=== PATIENT | female | born 1980 ===

== ENCOUNTER 2024-10-16 08:03 | Outpatient (AMB) | payer OTHER, SELFPAY ==
[2024-10-16 08:07] VITALS: BP 118/68; PULSE 89; O2SAT 97; BMI 55.5
--- NOTE | 2024-10-16 08:07 | A.OFFVIS_ITS ---
Vital Signs 10/16/24 08:07 Height 5 ft Weight 283 lb 15.286 oz BMI 55.5 BP 118/68 Blood Pressure Location Lt brachial Position Sitting Pulse 89 Pulse Source Pulse Oximeter Pulse Oximetry (%) 97 Oxygen Delivery Method Room Air Intake Visit Reasons: Carpal tunnel Intake Note: Patient presents for follow up on carpal tunnel syndrome. Allergies No Known Allergies Allergy (Verified 10/16/24 08:09) HPI HPI Carpal tunnel: Details: He has numbness in her hands every day. Right hand numbness is worse than left hand numbness. Bilateral wrist braces are worn out. She has had benefit with cortisone injections in the past. She received cortisone injection to treat right carpal tunnel syndrome 12/2023 and 1 last year to treat left carpal tunnel syndrome. [facility] Medical History (Updated 10/16/24 @ 22:46 by Donn Katz MD) Normal esophagogastroduodenoscopy (EGD) Depression Elevated TSH Morbid obesity with BMI of 50.0-59.9, adult Urge incontinence Gallbladder sludge GERD (gastroesophageal reflux disease) Surgical History (Updated 08/31/22 @ 07:28 by Darius Carcamo LPN) Hx laparoscopic cholecystectomy history Family History (Updated 08/31/22 @ 07:33 by Darius Carcamo LPN) Mother Thyroid disease Hypertension H/O scleroderma Father Myocardial infarct Diabetes Maternal Grandmother Diabetes Myocardial infarct Paternal Grandmother AD (Alzheimer's disease) Review of Systems Const All systems reviewed & are unremarkable except as noted in HPI and below Physical Exam Vital Signs: Last Vital Signs Pulse 89 10/16/24 08:07 BP 118/68 10/16/24 08:07 Pulse Ox 97 10/16/24 08:07 Oxygen Delivery Method Room Air 10/16/24 08:07 BMI result Body Mass Index 55.5 Const Other: General: Comfortable Skin: No lesions seen MSK: Nontender bilateral wrists and hands. No synovitis present. No deformity of wrists. Good range of motion of wrists. Office Procedures AMB Joint Injection/Aspiration Joint Injection/Aspiration Primary Site: right carpal tunnel Prep: site was prepped using aseptic technique Injected: 20 mg of, 40 mg of, Kenalog, with 0.5 mL of and 1% plain lidocaine Procedure: The patient tolerated the procedure well Coding Additional procedure code (CPT) needed (32525) AMB Joint Injection/Aspiration Joint Injection/Aspiration Primary Site: left carpal tunnel Prep: site was prepped using aseptic technique Injected: 20 mg of, Kenalog, with 0.5 mL of and 1% plain lidocaine Procedure: The patient tolerated the procedure well Coding Additional procedure code (CPT) needed (48020) Office Meds lidocaine (PF) 10 mg/mL (1 %) injection solution Performing Provider: Donn Katz MD Performing Location: [facility] Administered by: Donn Katz MD on 10/16/24 22:40 Dose Route Admin Location Dispensed Lot Number Expiration Date [facility] [employer] 5 mg Infiltration 2 mL [id number] [employer] Kenalog 40 mg/mL suspension for injection Performing Provider: Donn Katz MD Performing Location: [facility] Administered by: Donn Katz MD on 10/16/24 22:40 Dose Route Admin Location Dispensed Lot Number Expiration Date [facility] [employer] 20 mg Tendon Sheath Inj. 1 mL [id number] [employer] lidocaine (PF) 10 mg/mL (1 %) injection solution Performing Provider: Donn Katz MD Performing Location: [facility] Administered by: Donn Katz MD on 10/16/24 22:40 Dose Route Admin Location Dispensed Lot Number Expiration Date [facility] [employer]ic 5 mg Infiltration 2 mL [id number] [employer] Kenalog 40 mg/mL suspension for injection Performing Provider: Donn Katz MD Performing Location: [facility] Administered by: Donn Katz MD on 10/16/24 22:40 Dose Route Admin Location Dispensed Lot Number Expiration Date [facility] [employer]ic 20 mg Tendon Sheath Inj. 1 mL [id number] [employer] Assessment & Plan Assessment & Plan (1) Carpal tunnel syndrome, bilateral: Comment: Bilateral. Uncontrolled numbness. Code(s): G56.03 - Carpal tunnel syndrome, bilateral upper limbs Category: Medical Plan: Bilateral cortisone injections for treatment of carpal tunnel syndrome given today Return to clinic in 6 months or sooner if needed Requesting medical records from [facility] Prescription bilateral cock-up wrist braces given to patient Orders: Orders AMB Joint Injection/Aspiration Today G56.03 - Carpal tunnel syndrome, bilateral upper limbs AMB Joint Injection/Aspiration Today G56.03 - Carpal tunnel syndrome, bilateral upper limbs Medications: New arm brace (Wrist Brace) As directed. Wear at night. Bilateral cockup wrist braces. Dx carpal tunnel syndrome 2 ea 0RF Coding Level of Care Code Est Pt Level 3 (03141) Complex EM visit Add On G2211 Diagnoses Carpal tunnel syndrome, bilateral G56.03 Comment Bilateral cortisone injection carpal tunnel CPT 24747
== END 2024-10-16 08:50 | disposition home or self-care (01) ==
PROVIDERS: PCP Internal Medicine Endocrinology, Diabetes & Metabolism; Visit Provider Internal Medicine Rheumatology
DX: G56.03 Carpal tunnel syndrome, bilateral upper limbs (principal)
CPT/HCPCS: 99213; G2211

== ENCOUNTER → 2024-10-16 08:03 | Outpatient (BNVA) | payer OTHER, SELFPAY | PROVIDERS: PCP Internal Medicine Endocrinology, Diabetes & Metabolism; Visit Provider Internal Medicine Rheumatology | DX: G56.03 Carpal tunnel syndrome, bilateral upper limbs (principal) | CPT/HCPCS: 20526; 99212; J2003; J3300 ==

== ENCOUNTER 2025-05-16 07:58 | Outpatient (REF) | payer OTHER, SELFPAY ==
[2025-05-16 13:45] LABS: Alanine Aminotransferase 24 U/L (0-31); Aspartate Amino Transferase 23 U/L (5-31); Estimated Glomerular Filt Rate > 60
== END 2025-05-16 07:59 | disposition home or self-care (01) ==
LOC: HO.HKASLDS 07:58
PROVIDERS: PCP Internal Medicine Endocrinology, Diabetes & Metabolism; Visit Provider Internal Medicine Rheumatology
DX: G56.03 Carpal tunnel syndrome, bilateral upper limbs (principal); M25.561 Pain in right knee; M25.562 Pain in left knee; R25.2 Cramp and spasm; Z79.1 Long term (current) use of non-steroidal anti-inflammatories (NSAID)
CPT/HCPCS: 36415; 82565; 84450; 84460; 99212

== ENCOUNTER 2025-05-16 07:58 | Outpatient (AMB) | payer OTHER, SELFPAY ==
--- NOTE | 2025-05-16 07:59 | A.OFFVIS_ITS ---
Vital Signs 05/16/25 08:06 Height 5 ft Weight 298 lb 2 oz BMI 58.2 BP 110/80 Blood Pressure Location Rt brachial Position Sitting Pulse 76 Pulse Source Pulse Oximeter Pulse Oximetry (%) 98 Oxygen Delivery Method Room Air Intake Visit Reasons: 6 months Intake Note: Patient presents for follow up on carpal tunnel syndrome. Allergies No Known Allergies Allergy (Verified 05/16/25 08:07) HPI HPI 6 months: Details: Fell a month ago on her knees. She has had constant knee pain. Ibuprofen 600mg alternating with tylenol [id number]. Ibuprofen helps more for knee pain. Hands are cramping. [facility] Medical History (Updated 05/16/25 @ 08:36 by Donn Katz MD) Normal esophagogastroduodenoscopy (EGD) Depression Elevated TSH Morbid obesity with BMI of 50.0-59.9, adult Urge incontinence Gallbladder sludge GERD (gastroesophageal reflux disease) Surgical History (Updated 08/31/22 @ 07:28 by Darius Carcamo LPN) Hx laparoscopic cholecystectomy history Family History (Updated 08/31/22 @ 07:33 by Darius Carcamo LPN) Mother Thyroid disease Hypertension H/O scleroderma Father Myocardial infarct Diabetes Maternal Grandmother Diabetes Myocardial infarct Paternal Grandmother AD (Alzheimer's disease) Physical Exam Vital Signs: Last Vital Signs Pulse 76 05/16/25 08:06 BP 110/80 05/16/25 08:06 Pulse Ox 98 05/16/25 08:06 Oxygen Delivery Method Room Air 05/16/25 08:06 BMI result Body Mass Index 58.2 Const Other: General: Comfortable Skin: No lesions seen MSK: Nontender bilateral wrists and hands. No synovitis present. No deformity of wrists. Good range of motion of wrists. Tender to palpate Left medial joint line of knee. Bilateral knee flexion 90 degrees. No knee effusion. Assessment & Plan Assessment & Plan (1) Carpal tunnel syndrome, bilateral: Comment: Bilateral. Controlled with last set of cortisone injections. Rheumatology history: Diagnosed with bilateral carpal tunnel syndrome confirmed on nerve conduction study at the [facility]. She received right cortisone injection August 2023 and left cortisone injection November 2023. She had bilateral cortisone injections 10/16/2024. Code(s): G56.03 - Carpal tunnel syndrome, bilateral upper limbs Category: Medical Plan: Return to clinic in 4 months or sooner if needed (2) Knee pain, bilateral: Comment: After fall. Left worse than right. She feels that her left knee is moving to records when she walks sometimes. She did not have any exam features of knee instability. Discussed conservative management. Code(s): M25.561 - Pain in right knee; M25.562 - Pain in left knee Category: Medical Plan: Start using ibuprofen 600 mg daily. She can use additional dose in the evening after dinner if needed for pain control for the next 2 weeks. Ice knee. If ice is ineffective use heat. Bilateral knee x-rays ordered PT ordered for knee strengthening Return to clinic in August or sooner if needed (3) Hand cramps: Code(s): R25.2 - Cramp and spasm Category: Medical Plan: Discussed importance of hydration If she continues to have hand cramps at follow-up visit, I will order electrolytes for further evaluation Return to clinic in 4 months Orders: Orders XR Knee Archie 3V Today M25.561 - Pain in right knee, M25.562 - Pain in left knee PT Evaluation and Treatment Today M25.561 - Pain in right knee, M25.562 - Pain in left knee Alanine Aminotransferase Today Z79.1 - [facility] (current) use of non-steroidal anti-inflammatories (NSAID) Aspartate Amino Transferase Today Z79.1 - medical terminologist (current) use of non- steroidal anti-inflammatories (NSAID) Creatinine Today Z79.1 - medical terminologist (current) use of non-steroidal anti- inflammatories (NSAID) Medications: New ibuprofen Take with food 600 mg PO Q8H PRN 90 tabs 1RF pain Coding Level of Care Code Est Pt Level 4 (64198) Complex EM visit Add On G2211 Diagnoses Carpal tunnel syndrome, bilateral G56.03 Knee pain, bilateral M25.561; M25.562 Hand cramps R25.2
--- OUTSIDE RECORDS SUMMARY | 2025-05-16 08:00 | XMS_ITS ---
Author Name [facility] Organization Unknown Care Team Organization Name Specialty Phone Email Start Date End Da te [facility] GARLAND PEÑA [facility] [email or web address]/16/2023 4 [facility] Isael Astorga Primary Care 01/18/202305/17 4 [facility] SHANIKA Lew Primary Care 08/24/202205/17 4
--- OUTSIDE RECORDS SUMMARY | 2025-05-16 08:00 | XMS_ITS | Encounter Summary ---
Author Organization [facility] Address [address] [place] [address] Care Team Providers Care Sandal Parts Assembler Name Role Phone Wily Jonas MD Primary Care Pr ovider Reason for Visit * Reason Onset Date Comments Prior Adverse 04/25/2025 Prior auth 04/25/2025 Encounter Details Date Type Department Care Team (Late st Contact Info) Description 04/25/2025 Telephone Endocrinology - [place] [address] [facility] [place] [phone] Savana Hammer MD [address] [place] [id number] Prior Adverse ; Prior auth Social History Tobacco Use Types Packs/Day Years Used Date Smoking Tobacco: Never Passive Smoke Exposure: Never Smokeless Tobacco: Never Alcohol Use Standard Drinks/Week Comments Yes 0 (1 standard drink = 0.6 oz pur e alcohol) socially Housing Instability Answer Date Recorde d Are you worried that in the next 2 months you may not have stable housing? No 12/12/2024 Food Access & Nutrition Answer Date Rec orded Do you have access to a vari ety of food including fruits and vegetables? Yes 12/12/2024 Access to Healthcare Answer Date Record ed Within the last 3 months, [place] many times did you visit the emergency department for your medical care? 0 12/12/2024 Health Literacy Answer Date Recorded How often do you need to hav e someone help you when you read instructions, pamphlets, or other written material from your doctor or pharmacy? Never 12/12/2024 Caregiver: How often do you need to have someone help you when you read instructions, pamphlets, or other written material from your doctor or pharmacy? Not on file 12/12/2024 Financial Risk Answer Date Recorded How hard is it for you to pa y for the very basics like food, housing, medical care, and air conditioning / heating? Not very hard 12/12/2024 Transportation Answer Date Recorded Has the lack of transportati on kept you from meetings, work, or from getting things needed for daily living? No Has the lack of transportati on kept you from medical appointments or from getting medications? No 12/12/2024 Social Isolation Answer Date Recorded How often do you feel lonely or isolated from th ose around you? Never 12/12/2024 Food Risk Answer Date Recorded Within the past 12 months we worried whether our food would run out before we got money to buy more. Never true 12/12/2024 Within the past 12 months th e food we bought just didn't last and we didn't have money to get more. Never true 12/12/2024 Dependent Care Answer Date Recorded Do you need help finding or paying for care for your loved ones. For example, salesperson children's shoes or elderly care for an older adult? No 12/12/2024 Education Answer Date Recorded Do you think completing more education or training, like finishing a GED, going to college, or learning a trade, would be helpful for you? No 12/12/2024 Employment and Income Answer Date Recor ded During the last four weeks, have you been actively looking for work? No 12/12/2024 Living Situation Answer Date Recorded What is your living situation? 0 12/12/2024 Comments No Sex and Gender Information Value Date Recorded Sex Assigned at Female 09/26/2024 11:37 AM EST Legal Sex Female 9:51 PM EST Gender Identity Female 09/26/2024 11:37 AM EST Sexual Orientation Straight 09/26/2024 11 :37 AM EST documented as of this encounter Progress Notes * Delia Lucio - 05/02/2025 10:36 AM EDT Pt would like update about prior auth * Delia Lucio - 04/30/2025 4:41 PM EDT Pt following up about prior auth. * Ines Rankin MA - 04/25/2025 3:35 PM EDT I call [facility] to venkat BARAHONA for zepbound per insurance someone call yesterday and was denied ,no documentation on file. * Darius Victor - 04/25/2025 1:50 PM EDT Prior Authorization for Medication-do not complete and send this encounter unless you have the fax from the pharmacy. Is this a Cover My Meds request: Yes -- Dia Code [id number] Name of Medication Zepbound Dose of Medication 2.5mg What is the RX # from the faxed refill? N/a How does patient take this med? injection What Pharmacy did the fax come from: [facility] Pharmacy fax #: [phone] documented in this encounter Plan of Treatment Upcoming Encounters Date Type Department Care Team (Late st Contact Info) Description 05/21/2025 1:15 PM EDT Office Visit Adult Medicine [address] [phone] Irasema Blake PA [address] [place] [address] 06/11/2025 4:00 PM EDT Office Visit [address] [phone] Savana Hammer MD [address] [place] [address] documented as of this encounter Visit Diagnoses Not on filedocumented in this encounter Additional Health Concerns Assessment Noted Time PHQ-9 Depression Total Score: 0 11/14/19 25 8:05 AM EST documented as of this encounter Care Teams Sandal Parts Assembler Relationship Specialty Start Date End Date Wily Jonas MD [address] [place] [id number] PCP - General 10/06/22 documented as of this encounter
[2025-05-16 08:06] VITALS: BP 110/80; PULSE 76; O2SAT 98; BMI 58.2
== END 2025-05-16 08:35 | disposition home or self-care (01) ==
LOC: HO.RHES 07:58
PROVIDERS: PCP Internal Medicine Endocrinology, Diabetes & Metabolism; Visit Provider Internal Medicine Rheumatology
DX: G56.03 Carpal tunnel syndrome, bilateral upper limbs (principal); M25.561 Pain in right knee; M25.562 Pain in left knee; R25.2 Cramp and spasm
CPT/HCPCS: 99214

== ENCOUNTER 2025-05-17 10:58 | Outpatient (REF) | payer OTHER, SELFPAY ==
--- NOTE | ~2025-05-17 | XR_ITS ---
Exam: X-ray, bilateral knees.XR KNEE 3 VIEWS BILATERAL TECHNIQUE: Three views lower extremity joint, bilateral knees INDICATION: bilateral knee pain COMPARISON: None available. FINDINGS: RIGHT KNEE: There is no joint effusion. There is questionable narrowing of the medial joint space. There are very small marginal osteophytes involving the tibial plateau and tibial spines. LEFT KNEE: There is mild narrowing of the medial joint space. There are small marginal osteophyte along the medial joint line and the intercondylar tubercles are peaked. There is no joint effusion. XR/XR Knee Archie 3V IMPRESSION: Right knee: Minimal evidence of osteoarthritis, medial compartment. Left knee: Mild osteoarthritis, medial compartment. Electronically signed by: Tomer Rascon MD 05/17/2025 11:26 AM EDT
--- OUTSIDE RECORDS SUMMARY | 2025-05-17 11:07 | XMS_ITS | Encounter Summary ---
Author Organization [employer] Address [address] [place] [address] Care Team Providers Care Supercalender Operator Helper Name Role Phone Wily Jonas MD Primary Care Pr ovider Reason for Visit * Reason Onset Date Comments Prior Adverse 04/25/2025 Prior auth 04/25/2025 Encounter Details Date Type Department Care Team (Late st Contact Info) Description 04/25/2025 Telephone Endocrinology - [place] [address] [place] [phone] Savana Hammer MD [address] [place] [phone] Prior Adverse ; Prior auth Social History [...] care for your loved ones. For example, children's ministry director or elderly care for an older adult? [...] - 04/25/2025 3:35 PM EDT I call [facility] to venkat BARAHONA for zepbound per insurance someone call yesterday and was denied ,no documentation on file. * Darius Victor - 04/25/2025 1:50 PM EDT Prior Authorization for Medication-do not complete and send this encounter unless you have the fax from the pharmacy. Is this a Cover My Meds request: Yes -- Dia Code [id number] Name of Medication Zepbound Dose of Medication 2.5mg What is the RX # from the faxed refill? N/a How does patient take this med? injection What Pharmacy did the fax come from: [facility] Pharmacy fax #: [phone] documented in this encounter Plan of Treatment Upcoming Encounters Date Type Department Care Team (Late st Contact Info) Description 05/21/2025 1:15 PM EDT Office Visit Adult Medicine [address] [phone] Irasema Blake PA [address] [place] [address] 06/11/2025 4:00 PM EDT Office Visit [address] [phone] Savana Hammer MD [address] [place] [address] documented as of this encounter Visit Diagnoses Not on filedocumented in this encounter Additional Health Concerns Assessment Noted Time PHQ-9 Depression Total Score: 0 11/14/19 25 8:05 AM EST documented as of this encounter Care Teams Supercalender Operator Helper Relationship Specialty Start Date End Date Wily Jonas MD [address] [place] [phone] PCP - General 10/06/22 documented as of this encounter
== END 2025-05-17 10:59 | disposition home or self-care (01) ==
LOC: HO.HMGCX 10:58
PROVIDERS: PCP Family Medicine; Visit Provider Internal Medicine Rheumatology
DX: M25.561 Pain in right knee (principal); M25.562 Pain in left knee
CPT/HCPCS: 73562

== ENCOUNTER → 2025-05-17 11:03 | Outpatient (BNV) | payer OTHER, SELFPAY | PROVIDERS: PCP Family Medicine; Visit Provider Radiology Diagnostic Radiology | DX: M25.561 Pain in right knee (principal); M25.562 Pain in left knee | CPT/HCPCS: 73562 ==